=== PATIENT | female | born 1985 | race Caucasian/White ===

== ENCOUNTER → 2018-01-01 16:42 | Outpatient (CLI) | payer MEDICAID, SELFPAY ==
[2018-01-05 14:01] LABS: HPV Reflexed? NOT INDICATED
== END ==
PROVIDERS: Visit Provider Obstetrics & Gynecology
DX: Z12.4 Encounter for screening for malignant neoplasm of cervix (principal)
CPT/HCPCS: 88175; G0145

== ENCOUNTER → 2018-03-26 18:15 | Outpatient (CLI) | payer BC, MEDICAID, SELFPAY ==
[2015-08-02 12:17] VITALS: BMI 37.1
[2018-03-26 22:30] LABS: Chlamydia Trachomatis by PCR Negative (Negative); Neisserai gonorrhoeae by PCR Negative (Negative); Probe Check PASS; Sample Adequacy Control PASS; Specimen Processing Control PASS
== END ==
PROVIDERS: Referring Provider Obstetrics & Gynecology; Visit Provider Obstetrics & Gynecology
DX: Z30.431 Encounter for routine checking of intrauterine contraceptive device (principal)
CPT/HCPCS: 87491; 87591

== ENCOUNTER 2021-03-19 09:17 | Emergency (ER) | payer MEDICAID, SELFPAY ==
[2021-03-19 09:18] VITALS: BP 143/92; PULSE 121; RESP 16; TEMP 36.8; O2SAT 98; BMI 33.4
--- NOTE | 2021-03-19 09:30 | CT_ITS ---
STUDY: CT BRAIN WITHOUT CONTRAST REASON FOR EXAM: Female, 35 years old. Headache. RADIATION DOSAGE (If Supplied By Facility): CTDIvol = ( 44.99 ) mGy, DLP = ( 779.24 ) mGycm TECHNIQUE: Transaxial CT imaging of the brain was performed without administration of intravenous contrast material. Individualized dose optimization techniques were used for this CT. COMPARISON: No relevant priors. FINDINGS: Normal soft tissue structures. Normal calvarium. Normal size ventricles and extra-axial spaces for the patient''s age. Normal white matter tracts of the cerebral hemispheres. Normal basal ganglia and thalami. Normal brainstem. Normal cerebellum. There is no intracranial hemorrhage. There are no findings of an acute ischemic infarction. Normal visualized paranasal sinuses. CT/Brain/Head without Contrast IMPRESSION: Normal unenhanced CT scan of the brain. Electronically Signed: Miguel Angel Ochoa, at 10:14 EST Tel , Service support ,
--- NOTE | 2021-03-19 09:30 | EKG12_ITS ---
Test Reason : CP Blood Pressure : / mmHG Vent. Rate : 108 BPM Atrial Rate : 108 BPM P-R Int : 184 ms QRS Dur : 088 ms QT Int : 340 ms P-R-T Axes : 042 074 -07 degrees QTc Int : 455 ms Sinus tachycardia Otherwise normal ECG Confirmed by ALLAN LOPEZ, KEON ([id number]), metropolitan editor MILAN MYERS ([id number]) on 03/23/2021 11:36:00 AM Referred By: RU Confirmed By:KEON LEMUS MD
--- NOTE | 2021-03-19 09:32 | EDS_ITS ---
HPI History of Present Illness Chief Complaint: Chest Pain Detail of Chief Complaint: Chest pain, headache, vomiting Informant: patient Narrative Narrative: Patient presents to the emergency department with multiple complaints. Patient states that she has had a cough for about a week and a half and had a negative COVID test about 5 days ago. Patient started with a severe headache yesterday that was sudden onset and she has had nausea and vomiting with it since. She has history of migraines but this was different than any migraine she never had and came on suddenly. Patient states the headache is improved but continues to have the headache and continues to throw up. She last threw up about 2 hours ago. She denies diarrhea. She does describe some body aches. She has a mild sore throat she thinks from vomiting. Patient complains of retrosternal chest discomfort that is achy. No recent travel or surgery. No COVID exposures known. Prior similar symptoms: No PFSH PFSH Medical History no medical history Home Medications alprazolam 0.5 mg PO 4X/DAY PRN 07/26/15 [History Last Taken 07/26/15] lamotrigine 300 mg PO DAILY 07/26/15 [History Last Taken 07/26/15] ondansetron 4 mg PO Q8H PRN PRN #10 tab 03/19/21 [Rx Last Taken Unknown] trazodone 50 mg PO QHS 03/19/21 [History Last Taken Unknown] Allergy/AdvReac Type Severity Reaction Status Date / Time No Known Allergies Allergy Verified 03/19/21 09:20 Social History Smoking Status: Never smoker [facility] ED Constitutional Constitutional ED: Reports systems reviewed and no addt'l complaints, except as documented; Denies body ache(s), change in weight or chills Eyes Eyes: Denies acute decrease in peripheral vision, change in vision, double vision or loss of vision ENT ENT ED: Reports none; Denies ear pain, lip swelling, loss taste/smell, neck pain, otalgia or sore throat Cardiovascular Cardiovascular: Reports none; Denies abdominal pain, chest pain with activity, leg edema, lightheadedness, palpitations, rapid heart rate or syncope Respiratory/Chest Respiratory/Chest: Reports none and cough; Denies change in mental status, dry cough, dyspnea, hemoptysis, shortness of breath at rest or shortness of breath with exertion Gastrointestinal Gastrointestinal: Reports none, nausea and vomiting; Denies abdominal pain, change in stool character, diarrhea, hematemesis, hematochezia, melena or rectal bleeding Genitourinary Genitourinary ED: Reports none; Denies abdominal discomfort, anuria, dysuria, genital pain or polyuria Musculoskeletal Musculoskeletal: Reports none and myalgias; Denies arthralgias, back pain, difficulty walking, extremity pain or muscle weakness Integumentary Reports none; Denies abscess or rash Neurologic Neurologic: Reports none and headache(s); Denies abnormal gait, confusion, focal weakness, frequent falls, loss of vision, numbness, paresthesias, radicular pain, vertigo or weakness Psychiatric Psychiatric: Reports systems reviewed and no addt'l complaints, except as documented and none; Denies behavioral changes, confusion, difficulty concentrating, hallucinations, suicidal ideation, tactile hallucinations or visual hallucinations Endocrine Endocrinology: Denies none, cold intolerance, excessive sweating, fatigue or heat intolerance Hematologic/Lymphatic Hematologic/Lymphatic: Reports none; Denies anemia, easy bleeding or easy bruising Allergic/Immunologic Allergic/Immunologic ED: Denies as per HPI, none, lip swelling, mouth swelling, throat swelling, tongue swelling or hives EXAM Physical Exam Const Vital Signs: 03/19/21 09:18 03/19/21 09:31 Temperature 98.2 F Temperature Source Temporal Pulse Rate 121 H Respiratory Rate 16 Respiratory Effort Normal Non-Labored Respiratory Pattern Normal Blood Pressure 143/92 H Blood Pressure Mean 109 Pulse Ox 98 Oxygen Delivery Method Room Air Positive well nourished and well developed General Appearance ED: well developed and NAD HEENT Reports TM's clear and moist mucous membranes normocephalic and atraumatic; Negative for trauma or tenderness Tympanic Membrane ED: Yes TM's clear Eyes PERRL and EOMs intact bilaterally General Eye ED: Negative for pale conjunctiva or scleral icterus Neck no lymphadenopathy, supple and no JVD General: Negative for tenderness Chest Wall inspection of chest normal and palpation of chest normal Chest: Negative for tenderness Resp normal respiratory effort and clear to auscultation bilaterally Effort and Inspection: Negative for respiratory distress or pain with movement Auscultation: Negative for rhonchi, wheezes or diminished lung sounds Cardio regular rate, regular rhythm, S1 normal heart sound, S2 normal heart sound and no murmurs Peripheral Pulses: pulses 2+ throughout GI normal to inspection, nondistended, normoactive bowel sounds, soft to palpation, non-tender, non-distended and no masses Back/Spine no CVA tenderness and no thoracic nor lumbar tenderness Extremity normal to inspection General Extremety ED: Negative for edema General Extremity: Negative for edema Neuro oriented x3, CN's II-XII intact bilaterally, no sensory deficits noted and gait normal Sensorium / Orientation: awake, alert, oriented to person, oriented to place and oriented to time Motor Exam: strength 5/5 throughout and strength abnormal Psych mental status grossly normal Skin no rashes or lesions noted and no wounds MDM MDM MDM Narrative Medical decision making narrative: IV line established. Patient was given Reglan, Benadryl, and Toradol. She was given a liter normal same fluid bolus. She continued complaint of nausea and received Zofran 4 mg IV. Because of the unusual headache with sudden onset and severe with vomiting a CT scan of the brain was obtained to rule out intracranial hemorrhage which was normal. Patient did test positive for COVID. At this point she tells me she has had a cough for almost 2 weeks therefore she will not qualify for monoclonal antibody infusion. Patient will be given a prescription for Zofran. She is advised to return if increasing shortness of breath or condition worsen anyway. Lab Data Attestation: I reviewed the patient's lab results. Labs: Laboratory Results - last 24 hr 03/19/21 03/19/21 03/19/21 09:40 09:40 09:40 WBC 7.2 RBC 4.79 Hgb 12.0 Hct 38.8 MCV 81.0 MCH 25.1 L MCHC 30.9 L RDW Std Deviation 40.8 RDW Coeff of Tima 14.0 Plt Count 351 MPV 9.4 Immature Gran % (Auto) 0.400 Neut % (Auto) 69.8 Lymph % (Auto) 23.9 Campbell % (Auto) 5.1 Eos % (Auto) 0.4 Baso % (Auto) 0.4 Absolute Neuts (auto) 5.0 Absolute Lymphs (auto) 1.72 Nucleated RBC % 0 D-Dimer Quant (PE/DVT) <= 0.27 Sodium 139 Potassium 3.3 L Chloride 106 Carbon Dioxide 22.0 Anion Gap 11 BUN 12 Creatinine 1.11 H Estim Creat Clear Calc 72.04 Est GFR (MDRD) Af Amer 72 Est GFR (MDRD) Non-Af 60 BUN/Creatinine Ratio 10.8 Glucose 116 H Calcium 9.3 Total Bilirubin 0.50 AST 25 ALT 31 Alkaline Phosphatase 58 Troponin I High Sens 24 Total Protein 7.9 Albumin 3.7 Globulin 4.2 Albumin/Globulin Ratio 0.9 Serum , Qual 03/19/21 09:40 WBC RBC Hgb Hct MCV MCH MCHC RDW Std Deviation RDW Coeff of Tima Plt Count MPV Immature Gran % (Auto) Neut % (Auto) Lymph % (Auto) Campbell % (Auto) Eos % (Auto) Baso % (Auto) Absolute Neuts (auto) Absolute Lymphs (auto) Nucleated RBC % D-Dimer Quant (PE/DVT) Sodium Potassium Chloride Carbon Dioxide Anion Gap BUN Creatinine Estim Creat Clear Calc Est GFR (MDRD) Af Amer Est GFR (MDRD) Non-Af BUN/Creatinine Ratio Glucose Calcium Total Bilirubin AST ALT Alkaline Phosphatase Troponin I High Sens Total Protein Albumin Globulin Albumin/Globulin Ratio Serum , Qual NEGATIVE Radiography Diagnostic Testing: Clinical Impression(s) from Imaging Studies Brain CT 03/19/21 09:30 IMPRESSION: Normal unenhanced CT scan of the brain. Electronically Signed: Miguel Angel Ochoa, at 10:14 EST Tel , Service support , Chest X-Ray 03/19/21 09:59 IMPRESSION: No active pulmonary disease. Electronically Signed: Miguel Angel Ochoa, at 10:09 EST Tel , Service support , EKG Initial EKG: Attestation: I personally reviewed and interpreted this EKG as follows: Comments: Sinus tachycardia with a rate of [address] segment changes Discharge Plan Triage Chief Complaint: Chest Pain ED Provider: Rohit Olivarez Dx/Rx/DC Orders Clinical Impression: COVID-19 Instructions: Caring for Someone Who Has COVID-19 Prescriptions: New ondansetron [ondansetron] 4 MG tablet 4 mg PO Q8H PRN PRN (Reason: Nausea) Qty: 10 RF: 0 No Action alprazolam 0.5 MG tablet 0.5 mg PO 4X/DAY PRN (Reason: Anxiety) RF: 0 lamotrigine 100 MG tablet 300 mg PO DAILY RF: 0 trazodone 50 mg tablet 50 mg PO QHS RF: 0 Primary Care Provider: NOT,DEFINED Referrals: Ondina Lopez MD [STAFF PHYSICIAN] - 5-7 Days NOT,DEFINED [Primary Care Provider] - Disposition Disposition: Home, Self Care
[2021-03-19 09:49] LABS: Absolute Lymphocyte Count 1.72 X10^3/uL (0.83-4.51); Basophil# 0.03 X10^3/uL; Basophil% 0.4 % (0-1); Eosinophil# 0.03 X10^3/uL; Eosinophils% 0.4 % (0-5); Hematocrit 38.8 % (37-47); Lymphocyte # 1.72 X10^3/ul (0.83-4.51); Lymphocyte % 23.9 % (19-41); Mean Corp Hgb Conc 30.9 g/dL (32-36); Mean Corpuscular Hgb 25.1 pg (27.0-32.0); Mean Platelet Vol. 9.4 fl (6.2-12.0); Monocyte# 0.37 X10^3/uL; Monocyte% 5.1 % (0-10); NRBC Flagged by Analyzer 0 % (0-5); Neutrophil # 5.01 X10^3/uL (2.7-7.7); Neutrophil % 69.8 % (47-70); Platelet Count 351 K/mm3 (150-450); RBC Distribution Width SD 40.8 fl (35.1-43.9); Red Blood Count 4.79 M/mm3 (4.2-5.4); White Blood Count 7.2 K/mm3 (4.4-11.0)
[2021-03-19] MEDS: 0.9% Normal Saline 1,000 ML 1000 ML IV (09:51)
[2021-03-19] MEDS: Metoclopramide 10 MG/2 ML Vial IV (09:52)
[2021-03-19] MEDS: Ketorolac 15 MG/ML Vial IV (09:52)
[2021-03-19] MEDS: DiphenhydrAMINE 50 MG/ML Syringe 25 MG IV (09:52)
[2021-03-19 09:57] LABS: Internal QC Validated? YES +Cl - CLEAR BKGD; Pregnancy, Serum, hCG Quali. NEGATIVE Negative
--- NOTE | 2021-03-19 09:59 | RAD_ITS ---
STUDY: X-RAY CHEST REASON FOR EXAM: Female, 35 years old. Chest pain TECHNIQUE: Single AP portable view of the chest. COMPARISON: None. FINDINGS: The lungs are clear and expanded. There is no demonstrated pleural abnormality. Normal size heart. Normal mediastinum and chris. Normal visualized pulmonary arteries. Normal visualized aortic arch and descending thoracic aorta. Mild dextroscoliosis of the thoracic spine. Normal visualized ribs, clavicles, and shoulders. There is no demonstrated abnormality of the visualized soft tissue structures of the upper abdomen. RAD/Chest 1 View (Portable) IMPRESSION: No active pulmonary disease. Electronically Signed: Miguel Angel Ochoa, at 10:09 EST Tel , Service support ,
[2021-03-19 10:06] LABS: ALB/GLOB Ratio 0.9 RATIO (0.9-2.4); AST(SGOT) 25 U/L (15-37); Alanine Aminotransfer ALT/SGPT 31 U/L (13-56); Albumin, Serum 3.7 g/dL (3.2-5.0); Alkaline Phosphatase 58 U/L (45-117); Anion Gap 11 (5-15); BUN 12 mg/dL (7-18); BUN/Creat Ratio 10.8 RATIO (10-20); Calcium,Total 9.3 mg/dL (8.5-10.1); Chloride 106 mmol/L (98-107); Creatinine, Serum 1.11 mg/dL (0.55-1.02); EST Glomerular Filtration Rate 60 mL/min (>60); Est Glom Filt Rate - Afr Amer 72 mL/min (>60); Estimated Creatinine Clearance 72.04 ml/min; Globulin 4.2 g/dL (2.2-4.2); Glucose 116 mg/dL (74-106); Potassium 3.3 mmol/L (3.5-5.1); Protein, Total 7.9 g/dL (6.4-8.2); Sodium Level 139 mmol/L (136-145); Troponin-I HS 24 pg/mL (3.0-54.0)
[2021-03-19 10:07] LABS: D-Dimer Quantitative (DVT/PE) <= 0.27 FEU/ug/m (0.27-0.49)
[2021-03-19] MEDS: Ondansetron 4 MG/2 ML Vial IV (10:43)
== END 2021-03-19 11:51 | disposition home or self-care (01) ==
LOC: ED 10:37
PROVIDERS: Emergency Provider Emergency Medicine; PCP Internal Medicine; Visit Provider Emergency Medicine
DX: U07.1 COVID-19 (principal)
CPT/HCPCS: 70450; 71045; 80053; 84484; 84703; 85025; 85379; 87426; 93005; 96361; 96374; 96375; 99284; J7030; A4216; J2405

== ENCOUNTER 2021-10-17 19:25 | Emergency (ER) | payer MEDICAID, SELFPAY ==
[2021-10-17 19:27] VITALS: BP 125/91; PULSE 93; RESP 16; TEMP 36.4; O2SAT 99; BMI 31.6
[2021-10-17] MEDS: HYDROcodone Bitartrate/Apap 5/325 Tablet PO (21:41)
--- NOTE | 2021-10-17 21:47 | CT_ITS ---
STUDY: CT BRAIN WITHOUT CONTRAST REASON FOR EXAM: Female, 35 years old. headache RADIATION DOSAGE (If Supplied By Facility): CTDIvol = ( 44.99 ) mGy, DLP = ( 829.85 ) mGycm TECHNIQUE: Transaxial CT imaging of the brain was performed without administration of intravenous contrast material. Individualized dose optimization techniques were used for this CT. COMPARISON: CT brain 03/19/2021 FINDINGS: Normal soft tissue structures. Normal calvarium. Normal size ventricles and extra-axial spaces for the patient''s age. Normal white matter tracts of the cerebral hemispheres. Normal basal ganglia and thalami. Normal brainstem. Normal cerebellum. There is no intracranial hemorrhage. There are no findings of an acute ischemic infarction. Normal visualized paranasal sinuses. CT/Brain/Head without Contrast IMPRESSION: Normal unenhanced CT scan of the brain. Electronically Signed: David Sow MD at 23:02 EDT ,
--- NOTE | 2021-10-17 21:47 | CT_ITS ---
STUDY: CT CERVICAL SPINE WITHOUT CONTRAST REASON FOR EXAM: Female, 35 years old. neck injury RADIATION DOSAGE (If Supplied By Facility): CTDIvol = ( 23.67 ) mGy, DLP = ( 521.61 ) mGycm TECHNIQUE: High resolution transaxial imaging was performed without contrast material. Sagittal and coronal images were reconstructed. Individualized dose optimization techniques were used for this CT. COMPARISON: None FINDINGS: Normal craniovertebral junction. Normal anterior atlantoaxial articulation. Normal odontoid process. There is reversal of the normal cervical lordosis. Normal vertebral bodies and posterior osseous elements. C2-3: Normal endplates. Normal disc height and morphology. Normal central canal and intervertebral neuroforamina. C3-4: Normal endplates. Normal disc height and morphology. Normal central canal and intervertebral neuroforamina. C4-5: Normal endplates. Normal disc height and morphology. Normal central canal and intervertebral neuroforamina. C5-6: Large left paracentral disc extrusion effacing the lateral recess and neural foramen. Central canal and right neural foramen patent. C6-7: Possible disc extrusion left neural foramen. Central canal and right neural foramen patent. C7-T1: Normal endplates. Normal disc height and morphology. Normal central canal and intervertebral neuroforamina. Normal visualized soft tissue structures. CT/Spine Cervical without Contras IMPRESSION: Large left disc extrusion C5-6 and possibly C6-7 with probable nerve root impingement. Recommend MRI of the cervical spine. No fracture. Electronically Signed: David Sow MD at 23:06 EDT ,
--- NOTE | 2021-10-17 21:59 | RAD_ITS ---
STUDY: X-RAY - LEFT SHOULDER REASON FOR EXAM: Female, 35 years old. pain TECHNIQUE: 4 view(s) of the shoulder. COMPARISON: None. FINDINGS: Normal glenohumeral articulation. Normal acromioclavicular joint. Normal acromion. Normal humeral head and visualized proximal humerus. The soft tissue structures are unremarkable. Normal visualized pulmonary apex. RAD/Shoulder min 2 Views IMPRESSION: Normal x-ray examination of the shoulder. Electronically Signed: David Sow MD at 23:32 EDT ,
--- NOTE | 2021-10-17 22:08 | EDS_ITS ---
HPI History of Present Illness Chief Complaint: Fall Narrative Narrative: 35-year-old female presenting with headache and left shoulder pain. Patient states he had a mechanical fall in the shower earlier today. She has had a mild headache most of the day. Has a history of migraines and states is not the same. She is not take anything for pain throughout the day. She went to the urgent care to be evaluated and they sent her to the emergency room. Patient's biggest complaint today is headache which is mild, neck pain and left shoulder pain. Patient is able to move her left shoulder without too much she has not noted any bruising. Is not on blood thinners. [facility] Medical History Anxiety Depression Migraines Non-smoker PTSD (post-traumatic stress disorder) Home Medications alprazolam 0.5 mg tablet 0.5 mg PO 4X/DAY PRN Anxiety 07/26/15 [History Last Taken 07/26/15] lamotrigine 100 mg tablet 300 mg PO DAILY 07/26/15 [History Last Taken 07/26/15] ondansetron 4 mg disintegrating tablet 4 mg PO Q8H PRN PRN Nausea #10 tabs 03/19/21 [Rx Last Taken Unknown] trazodone 50 mg tablet 50 mg PO QHS 03/19/21 [History Last Taken Unknown] hydrocodone-acetaminophen 5-325mg 5mg-325mg 1 tab PO Q6H PRN pain 3 days #12 tabs 10/17/21 [Rx Last Taken Unknown] Allergy/AdvReac Type Severity Reaction Status Date / Time No Known Allergies Allergy Verified 10/17/21 19:30 Social History Smoking Status: Never smoker ROS ROS ED Constitutional Constitutional ED: Denies chills or fever(s) Eyes Eyes: Denies change in vision ENT ENT ED: Denies rhinorrhea or sore throat Cardiovascular Cardiovascular: Denies chest pain or palpitations Respiratory/Chest Respiratory/Chest: Denies cough or dyspnea Gastrointestinal Gastrointestinal: Reports nausea; Denies abdominal pain or constipation Genitourinary Genitourinary ED: Denies dysuria or hematuria Musculoskeletal Musculoskeletal: Reports neck pain and other Details: Left shoulder pain Neurologic Neurologic: Reports headache(s); Denies paresthesias Psychiatric Psychiatric: Denies anxiety or depression EXAM Physical Exam Const Vital Signs: 10/17/21 19:27 10/17/21 22:44 Temperature 97.6 F L Temperature Source Temporal Pulse Rate 93 Respiratory Rate 16 16 Blood Pressure 125/91 H Blood Pressure Mean 102 Pulse Ox 99 97 Oxygen Delivery Method Room Air Positive well nourished General Appearance ED: NAD HEENT Reports TM's clear atraumatic Tympanic Membrane ED: Yes TM's clear Eyes PERRL and EOMs intact bilaterally Chest Wall inspection of chest normal and palpation of chest normal Resp normal respiratory effort and clear to auscultation bilaterally Auscultation: Negative for rales, rhonchi or wheezes Cardio regular rhythm GI normal to inspection, nondistended, normoactive bowel sounds Back/Spine normal to inspection Back/Spine Narrative: Left cervical paraspinal muscular tenderness. There is tenderness in the left trapezius as well. No clavicular tenderness. Extremity normal to inspection Neuro oriented x3 and CN's II-XII intact bilaterally Sensorium / Orientation: alert and oriented to person Psych mental status grossly normal Skin no rashes or lesions noted MDM MDM MDM Narrative Medical decision making narrative: Patient presenting after mechanical fall. She has left paraspinal musculature pain without midline spinal deformity or step-off. She also has left trapezial pain and pain in the left shoulder. I obtained x-rays of the left shoulder and on 2 views I interpret this as negative for fracture or dislocation. Radiol ogist agree. CT the brain is negative for acute intracranial findings. CT the cervical spine does show a large left disc extrusion at C5-C6 and possibly one at C6-7. There could be possible nerve root impingement. Reevaluation at 11:20 AM patient is feeling better after receiving [place]. She does still have some pain in her trapezius which seems to be the most pain. I do not believe she needs an emergent MRI but I did recommend she follow-up with orthopedics. I gave her Dr. Alamo for follow-up. She given [place] for pain at home. She is given instructions for follow-up. Return precautions discussed. Impression: 1. Cervical strain 2. Mechanical fall 3. Closed head injury Lab Data Attestation: I reviewed the patient's lab results. Radiography Diagnostic Testing: Clinical Impression(s) from Imaging Studies Brain CT 10/17/21 21:47 IMPRESSION: Normal unenhanced CT scan of the brain. Electronically Signed: David Sow MD at 23:02 EDT Reading Location ID and State: [facility] / [place] , Service support , Cervical Spine CT 10/17/21 21:47 IMPRESSION: Large left disc extrusion C5-6 and possibly C6-7 with probable nerve root impingement. Recommend MRI of the cervical spine. No fracture. Electronically Signed: David Sow MD at 23:06 EDT , Discharge Plan Triage Chief Complaint: Fall ED Provider: Home Blake Dx/Rx/DC Orders Prescriptions: New hydrocodone-acetaminophen 5-325 mg tablet 1 tab PO Q6H PRN (Reason: pain) 3 Days Qty: 12 0RF No Action alprazolam 0.5 MG tablet 0.5 mg PO 4X/DAY PRN (Reason: Anxiety) lamotrigine 100 MG tablet 300 mg PO DAILY trazodone 50 mg tablet 50 mg PO QHS Label Comments: TAKE 1 TABLET AT BEDTIME NEEDED. ondansetron [ondansetron] 4 MG tablet 4 mg PO Q8H PRN PRN (Reason: Nausea) Qty: 10 0RF Primary Care Provider: Ondina Lopez Referrals: Ondina Lopez MD [Primary Care Provider] - Jalil Alamo DO [Med Staff - Active Staff] - As soon as possible Disposition Disposition: Home, Self Care
[2021-10-17 22:44] VITALS: RESP 16; O2SAT 97
[2021-10-17 23:27] VITALS: BP 120/85; PULSE 79; RESP 16; O2SAT 98
== END 2021-10-17 23:27 | disposition home or self-care (01) ==
PROVIDERS: Emergency Provider Student in an Organized Health Care Education/Training Program; PCP Internal Medicine; Visit Provider Student in an Organized Health Care Education/Training Program
DX: S16.1XXA Strain of muscle, fascia and tendon at neck level, initial encounter (principal); F32.A Depression, unspecified; F41.9 Anxiety disorder, unspecified; G43.909 Migraine, unspecified, not intractable, without status migrainosus; F43.10 Post-traumatic stress disorder, unspecified; Z79.899 Other long term (current) drug therapy; W18.2XXA Fall in (into) shower or empty bathtub, initial encounter; S09.90XA Unspecified injury of head, initial encounter; M25.512 Pain in left shoulder
CPT/HCPCS: 70450; 72125; 73030; 99282

== ENCOUNTER → 2021-11-11 | Outpatient (CLI) | payer MEDICAID, SELFPAY ==
[2021-11-11 12:07] LABS: hCG Titer Quant., Serum < 1 mIU/mL (1-3)
[2021-11-11 12:41] LABS: HIV - WCH Non-Reactive (Nonreactive); Hepatitis B Surface Antibody Non-Reactive; Syphilis Antibodies Non-reactive
[2021-11-14 06:06] LABS: Chlamydia By Nucleic Acid AMP Negative (Negative); Gonococcus By Nucleic Acid AMP Negative (Negative); HEPATITIS B SURFACE AG Negative (Negative); Hep C Antibodies <0.1 s/co ratio (0.0-0.9); Hepatitis A IgM Antibody Negative (Negative); Hepatitis B Core AB IgM Negative (Negative)
[2021-11-16 08:49] LABS: Hepatitis A AB, Total Negative (Negative)
== END | disposition home or self-care (01) ==
LOC: WOBLAB 10:23
PROVIDERS: PCP Internal Medicine; Visit Provider Obstetrics & Gynecology
DX: N93.9 Abnormal uterine and vaginal bleeding, unspecified (principal); Z11.3 Encounter for screening for infections with a predominantly sexual mode of transmission
CPT/HCPCS: 36415; 80074; 84702; 86703; 86706; 86708; 86780; 87491; 87591

== ENCOUNTER 2023-06-12 13:08 | Emergency (ER) | payer MEDICAID, SELFPAY ==
[2023-06-12 13:10] VITALS: BP 129/86; PULSE 69; RESP 14; TEMP 36.6; O2SAT 97; BMI 32.6
--- NOTE | 2023-06-12 14:08 | EX.ED.GENINJ ---
HPI History of Present Illness Chief Complaint: Back Informant: patient Onset/Context/Timing Onset: Yesterday Mechanism/Context: Fall Location of pain/injuries: Right shoulder Quality of Pain: Burning Location: Head, neck, low back, and right scapula Worsened by: Movement and weightbearing Relieved by: Nothing Associated Symptoms Associated Symptoms: Negative for Parasthesias, Weakness, Loss of function, Inability to ambulate, Loss of consciousness or Amnesia Narrative Narrative: Patient presents after a fall that occurred yesterday. Patient states she fell down approximately 5-6 steps. Patient did hit the back of her head. Patient denies any loss of consciousness. Patient complains of pain over her right scapula, low back, neck, and head. Patient states her back pain radiates down her right leg. Patient states her right leg feels like it wants to give out at times when she walks. Patient denies any paresthesias. Patient admits to some nausea and vomiting today. Patient states she has a history of migraine headaches. Patient states she thinks her nausea and vomiting is likely due to her headache. [facility] Medical History Anxiety Depression Migraines Non-smoker PTSD (post-traumatic stress disorder) Home Medications alprazolam 0.5 mg tablet 0.5 mg PO 4X/DAY PRN Anxiety 07/26/15 [History Last Taken 07/26/15] lamotrigine 100 mg tablet 300 mg PO DAILY 07/26/15 [History Last Taken 07/26/15] ondansetron 4 mg disintegrating tablet 4 mg PO Q8H PRN PRN Nausea #10 tabs 03/19/21 [Rx Last Taken Unknown] trazodone 50 mg tablet 50 mg PO QHS 03/19/21 [History Last Taken Unknown] hydrocodone-acetaminophen 5-325mg 5mg-325mg 1 tab PO Q6H PRN pain 3 days #12 tabs 06/12/23 [Rx Last Taken Unknown] Allergy/AdvReac Type Severity Reaction Status Date / Time No Known Allergies Allergy Verified 06/12/23 13:09 Surgical History no surgical history no surgical history Social History Smoking Status: Never smoker ROS ROS ED Constitutional Constitutional ED: Denies chills or fever(s) Eyes Eyes: Denies blurry vision or change in vision ENT ENT ED: Denies rhinorrhea or sore throat Cardiovascular Cardiovascular: Denies chest pain or palpitations Respiratory/Chest Respiratory/Chest: Denies cough or dyspnea Gastrointestinal Gastrointestinal: Reports nausea and vomiting Genitourinary Genitourinary ED: Denies dysuria or hematuria Musculoskeletal Musculoskeletal: Reports back pain and neck pain Integumentary Denies abscess or rash Neurologic Neurologic: Reports headache(s); Denies weakness Allergic/Immunologic Allergic/Immunologic ED: Denies mouth swelling or urticaria EXAM Physical Exam Const Vital Signs: 06/12/23 13:10 Temperature 98 F Temperature Source Temporal Pulse Rate 69 Respiratory Rate 14 Blood Pressure 129/86 H Blood Pressure Mean 100 Pulse Ox 97 Oxygen Delivery Method Room Air Positive well nourished and well developed General Appearance ED: well developed and NAD HEENT HEENT Narrative: There is tenderness over the occipital scalp. There is no bony crepitance or step-off noted. There are no lacerations noted. tenderness Eyes PERRL and EOMs intact bilaterally Neck Neck Narrative: There is tenderness over the cervical spine and right cervical paraspinal muscles. There is no bony crepitance or step-off. Range of motion was slightly limited in all motions of the cervical spine secondary to pain. Resp normal respiratory effort and clear to auscultation bilaterally Cardio regular rhythm Rate: regular rate GI non-tender and non-distended Palpation: soft Back/Spine Back/Spine Narrative: There is tenderness over the lumbar spine and right lumbar paraspinal muscles. There is no edema or ecchymosis. There is good range of motion. Lumbar Spine / Lower Back: straight leg raise negative bilaterally Extremity normal to inspection and full ROM Neuro oriented x3, CN's II-XII intact bilaterally, moves all extremities, no focal motor deficits and no sensory deficits noted Halsey Coma Scale: document GCS findings Spontaneous Obeys Commands Oriented 15 Sensorium / Orientation: alert Motor Exam: strength 5/5 throughout Deep Tendon Reflexes: Rt Patellar (L4): 2+, Lt Patellar (L4): 2+, Rt Ankle (S1): 2+ and Lt Ankle (S1): 2+ Deep Tendon Reflexes Back: Rt Patellar (L4): 2+, Lt Patellar (L4): 2+, Rt Ankle (S1): 2+ and Lt Ankle (S1): 2+ Psych mental status grossly normal MDM MDM MDM Narrative Medical decision making narrative: Differential diagnosis includes closed head injury, intracranial bleeding, cervical spine fracture, cervical strain, lumbar compression fracture, lumbosacral strain, renal contusion, and occult shoulder fracture. X-rays of the right shoulder will be obtained to assess for occult fracture. CT scan of the brain will be obtained to assess for intracranial bleeding and closed head injury. CT scan of the cervical spine will be obtained to assess for cervical spine fracture. X-rays of the lumbosacral spine will be obtained to assess for lumbar fracture. Lab Data Labs: Laboratory Results - last 24 hr 06/12/23 15:45 Urine Color Yellow Urine Clarity Clear Urine pH 7.0 Ur Specific [place] 1.010 Urine Protein Negative Urine Glucose (UA) Normal Urine Ketones Negative Urine Occult Blood 10 H Urine Nitrite Negative Urine Bilirubin Negative Urine Urobilinogen Normal Ur Leukocyte Esterase 25 H Urine RBC 0 SEEN Urine WBC 0 SEEN Ur Squamous Epith Cells 5-10 SEEN Urine Bacteria 0 SEEN Urine Mucus 0 SEEN Radiography X-Ray: LS SPine, Read by ED Physician, Read by Radiologist, No Fracture, Normal Bony Alignment and Disk Space Narrowing Diagnostic Testing: Clinical Impression(s) from Imaging Studies Lumbar Spine X-Ray 06/12/23 14:14 IMPRESSION: Levoconvex scoliosis. [id number] degree of disc space narrowing at the L5-S1 level. Electronically Signed: Mario Medrano MD at 15:00 EDT , Brain CT 06/12/23 14:35 IMPRESSION: Normal unenhanced CT scan of the brain. Electronically Signed: Mario Medrano MD at 14:58 EDT , Cervical Spine CT 06/12/23 14:35 IMPRESSION: Moderate degree of disc space narrowing with anterior spondylosis at the C5-C6 level. Electronically Signed: Mario Medrano MD at 14:59 EDT , Shoulder X-Ray 06/12/23 14:42 IMPRESSION: Normal x-ray examination of the shoulder. Electronically Signed: Mario Medrano MD at 15:00 EDT , X-rays of the lumbar spine were obtained. There are 3 views. On my independent interpretation, there is no acute fracture or spondylolisthesis noted. There is some mild to space narrowing at L5-S1. X-rays of the right shoulder were obtained. There are 4 views. On my independent interpretation, there is no acute fracture or dislocation noted. There are no degenerative changes noted. Radiologist also interpreted the x-rays and agrees. CT scan of the cervical spine was obtained. There is moderate disc space narrowing with mild anterior spondylosis at the C5-C6 level. There is no acute fracture. This was interpreted by the radiologist and was also independently reviewed by myself. CT scan of the brain was obtained. There is no acute intracranial abnormality. This was interpreted by the radiologist and was also independently reviewed by myself. Treatment and Re-Evaluation Narrative: Patient was given a dose of [place] here. Patient was advised of her findings. Patient was given a prescription for a short course of [place]. Patient was instructed use ice to the area. Patient was instructed to follow-up with her primary care physician in 5 to 7 days. Patient understood and was agreeable with the plan. All questions were answered. Discharge Plan Triage Chief Complaint: Back ED Provider: Joe Humphrey Dx/Rx/DC Orders Clinical Impression: Acute lumbosacral myofascial strain, Cervical strain, acute, Fall, Closed head injury Instructions: ED Back Sprain/Strain, ED Head Injury (Adult) Prescriptions: Continued hydrocodone-acetaminophen 5-325 mg tablet 1 tab PO Q6H PRN (Reason: pain) 3 Days Qty: 12 0RF No Action alprazolam 0.5 MG tablet 0.5 mg PO 4X/DAY PRN (Reason: Anxiety) lamotrigine 100 MG tablet 300 mg PO DAILY trazodone 50 mg tablet 50 mg PO QHS Patient Comments: TAKE 1 TABLET AT BEDTIME NEEDED. ondansetron [ondansetron] 4 MG tablet 4 mg PO Q8H PRN PRN (Reason: Nausea) Qty: 10 0RF Primary Care Provider: Ondina Lopez Referrals: Ondina Lopez MD [Primary Care Provider] - Disposition Disposition: Home, Self Care
--- NOTE | 2023-06-12 14:14 | RAD_ITS ---
STUDY: X-RAY - LUMBAR SPINE REASON FOR EXAM: Female, 37 years old. Injury/Pain TECHNIQUE: 3 view(s) of the lumbar spine were obtained. COMPARISON: None FINDINGS: Normal lumbar lordosis. There is a levoscoliosis of the lumbar spine. There is a normal alignment of the vertebrae. Normal vertebral bodies and endplates. This space narrowing at the L5-S1 level. The soft tissue structures are unremarkable. RAD/Lumbar Spine 2 or 3 Views IMPRESSION: Levoconvex scoliosis. Wzyk-se-kxpshmcl degree of disc space narrowing at the L5-S1 level. Electronically Signed: Mario Medrano MD at 15:00 EDT ,
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
--- NOTE | 2023-06-12 14:35 | CT_ITS ---
STUDY: CT CERVICAL SPINE WITHOUT CONTRAST REASON FOR EXAM: Female, 37 years old. Injury/Pain RADIATION DOSAGE (If Supplied By Facility): CTDIvol = ( 25.74 ) mGy, DLP = ( 551.24 ) mGycm TECHNIQUE: High resolution transaxial imaging was performed without contrast material. Sagittal and coronal images were reconstructed. Individualized dose optimization techniques were used for this CT. COMPARISON: Comparison is made with prior study October 17, 2021. FINDINGS: Normal craniovertebral junction. Normal anterior atlantoaxial articulation. Normal odontoid process. There is reversal of the normal cervical lordosis. Normal vertebral bodies and posterior osseous elements. C2-3: Normal endplates. Normal disc height and morphology. Normal central canal and intervertebral neuroforamina. C3-4: Normal endplates. Normal disc height and morphology. Normal central canal and intervertebral neuroforamina. C4-5: Normal endplates. Normal disc height and morphology. Normal central canal and intervertebral neuroforamina. C5-6: Moderate degree of disc space narrowing with anterior spondylosis. C6-7: Normal endplates. Normal disc height and morphology. Normal central canal and intervertebral neuroforamina. C7-T1: Normal endplates. Normal disc height and morphology. Normal central canal and intervertebral neuroforamina. Normal visualized soft tissue structures. CT/Spine Cervical without Contras IMPRESSION: Moderate degree of disc space narrowing with anterior spondylosis at the C5-C6 level. Electronically Signed: Mario Medrano MD at 14:59 EDT ,
--- NOTE | 2023-06-12 14:42 | RAD_ITS ---
STUDY: X-RAY - RIGHT SHOULDER REASON FOR EXAM: Female, 37 years old. Injury/Pain TECHNIQUE: 4 view(s) of the shoulder. COMPARISON: None. FINDINGS: Normal glenohumeral articulation. Normal acromioclavicular joint. Normal acromion. Normal humeral head and visualized proximal humerus. The soft tissue structures are unremarkable. Normal visualized pulmonary apex. RAD/Shoulder min 2 Views IMPRESSION: Normal x-ray examination of the shoulder. Electronically Signed: Mario Medrano MD at 15:00 EDT ,
[2023-06-12] MEDS: HYDROcodone Bitartrate/Apap 5/325 Tablet PO (14:54)
[2023-06-12 16:12] LABS: Bacteria 0 SEEN /hpf (None Seen); Mucous, Urine 0 SEEN /hpf (<or=2+); Red Blood Cells-Urine 0 SEEN /hpf (0-5); White Blood Cells 0 SEEN /hpf (0-5)
[2023-06-12 16:23] LABS: Color, Urine Yellow (Yellow); Glucose, Dipstick Normal (Normal); Ketone-Dipstick Negative (Negative); Leukocyte Esterase-Dipstick 25 /ul (Negative); Nitrite-Dipstick Negative (Negative); Occult Blood-Urine 10 /ul (Negative); Protein-Dipstick Negative (Negative); Urine Bilirubin Dipstick Negative (Negative); Urine Clarity Clear (Clear); Urine Urobilinogen Normal (Normal)
[2023-06-12 16:30] LABS: Squamous Epithelial Cells - UA 5-10 SEEN /hpf (5-10)
[2023-06-12 17:06] VITALS: BP 114/89; PULSE 87; RESP 17; TEMP 36.5; O2SAT 97
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
== END 2023-06-12 17:09 | disposition home or self-care (01) ==
PROVIDERS: Emergency Provider Emergency Medicine; PCP Internal Medicine; Visit Provider Emergency Medicine
DX: S09.90XA Unspecified injury of head, initial encounter (principal); S16.1XXA Strain of muscle, fascia and tendon at neck level, initial encounter; S39.012A Strain of muscle, fascia and tendon of lower back, initial encounter; W10.9XXA Fall (on) (from) unspecified stairs and steps, initial encounter; F41.9 Anxiety disorder, unspecified; Z79.899 Other long term (current) drug therapy
CPT/HCPCS: 70450; 72100; 72125; 73030; 81001; 99282

== ENCOUNTER 2024-03-09 21:55 | Emergency (ER) | payer MEDICAID, SELFPAY ==
[2024-03-09 21:56] VITALS: BP 134/99; PULSE 72; RESP 16; TEMP 36.9; O2SAT 100; BMI 30.3
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
[2024-03-09 23:09] LABS: Internal QC Validated? YES +Cl - CLEAR BKGD; Pregnancy, Serum, hCG Quali. NEGATIVE Negative
[2024-03-09 23:11] LABS: Anion Gap 7 (5-15); BUN 7 mg/dL (7-18); Calcium,Total 8.8 mg/dL (8.5-10.1); Chloride 109 mmol/L (98-107); Creatinine, Serum 0.78 mg/dL (0.55-1.02); EST Glomerular Filtration Rate 88 mL/min (>60); Est Glom Filt Rate - Afr Amer 107 mL/min (>60); Estimated Creatinine Clearance 116.27 ml/min; Glucose 105 mg/dL (74-106); Potassium 3.4 mmol/L (3.5-5.1); Sodium Level 142 mmol/L (136-145)
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
[2024-03-09 23:56] VITALS: BP 110/84; PULSE 68; RESP 16; O2SAT 99
[2024-03-10 00:53] VITALS: BP 117/95; PULSE 66; RESP 16; TEMP 36.7; O2SAT 100
--- NOTE | 2024-03-10 01:05 | ED.RN ---
Pt signed release for medical records. Records from current visit printed and given to [place] Officer Mary.
== END 2024-03-10 01:08 | disposition home or self-care (01) ==
PROVIDERS: Emergency Provider Emergency Medicine; PCP Internal Medicine; Visit Provider Emergency Medicine
DX: T71.193A Asphyxiation due to mechanical threat to breathing due to other causes, assault, initial encounter (principal); S80.11XA Contusion of right lower leg, initial encounter; F41.9 Anxiety disorder, unspecified; Z79.899 Other long term (current) drug therapy; Y92.009 Unspecified place in unspecified non-institutional (private) residence as the place of occurrence of the external cause; Y04.8XXA Assault by other bodily force, initial encounter; S80.12XA Contusion of left lower leg, initial encounter; S40.021A Contusion of right upper arm, initial encounter; S40.022A Contusion of left upper arm, initial encounter
CPT/HCPCS: 70450; 70498; 80048; 84703; 99285; Q9967; A4216

== ENCOUNTER 2024-03-11 06:01 | Emergency (ER) | payer MEDICAID, SELFPAY ==
[2024-03-11 06:01] VITALS: BP 143/86; PULSE 85; RESP 16; TEMP 36.9; O2SAT 100; BMI 29.0
[2024-03-11] MEDS: Metoclopramide 10 MG/2 ML Vial IV (06:27)
[2024-03-11] MEDS: 0.9% Normal Saline (1000mL) 1,000 ML 999 ML IV (06:27)
[2024-03-11] MEDS: dexAMETHasone 10 MG/ML Vial IV (06:28)
[2024-03-11] MEDS: Ketorolac 30 MG/ML Syringe IV (06:29)
[2024-03-11] MEDS: DiphenhydrAMINE 50 MG/ML Syringe IV (06:30)
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
[2024-03-11 07:27] VITALS: BP 143/86; PULSE 85; RESP 16; TEMP 36.9; O2SAT 100
[2024-03-11] MEDS: oxyCODONE 5 MG Tablet 10 MG PO (07:34)
== END 2024-03-11 07:42 | disposition home or self-care (01) ==
PROVIDERS: Emergency Provider Emergency Medicine; PCP Internal Medicine; Visit Provider Emergency Medicine
DX: S06.0X0D Concussion without loss of consciousness, subsequent encounter (principal); R51.9 Headache, unspecified; F41.9 Anxiety disorder, unspecified; Z79.899 Other long term (current) drug therapy; T14.8XXD Other injury of unspecified body region, subsequent encounter; Y09 Assault by unspecified means
CPT/HCPCS: 96361; 96374; 96375; 99283; A4216